=== PATIENT | female | born 1930 | race Caucasian/White ===

== ENCOUNTER 2017-02-19 12:31 | Inpatient (IN) | payer OTHER, BC ==
--- NOTE | 2017-02-19 12:50 | PDOC ---
History of Present Illness - General Chief Complaint: Injury Stated Complaint: FALL Time Seen by Provider: 02/19/17 12:49 - History of Present Illness Initial Comments: 02/19/17 12:49 The patient is a year old female, with a significant past medical history of, who presents to the emergency department with The patient denies chest pain, shortness of breath, headache and dizziness. Denies fever, chills, nausea, vomit, diarrhea and constipation. Denies dysuria, frequency, urgency and hematuria. Allergies: Past surgical history: Social history: PMD - Past History - Past Medical History Allergies/Adverse Reactions: Allergies Allergy/AdvReac Type Severity Reaction Status Date / Time shellfish derived Allergy Intermediate Hives Verified 10/04/13 21:25 strawberry [[place]] Allergy Mild Hives Verified 10/04/13 21:25 aspirin Allergy Verified 10/04/13 21:25 Home Medications: Ambulatory Orders Simvastatin [Zocor] 80 mg PO HS #0 tablet 06/11/12 Carvedilol [Coreg -] 25 mg PO BID #0 tablet 11/05/12 Clopidogrel Bisulfate [Plavix -] 75 mg PO DAILY #0 tablet 11/05/12 Enalapril Maleate [Vasotec -] 10 mg PO DAILY #0 tablet 11/05/12 Furosemide [Lasix -] 40 mg PO DAILY #0 11/05/12 Pantoprazole Sodium [Protonix -] 40 mg PO DAILY #0 tablet.ec 11/05/12 Potassium Chloride [K-Dur -] 10 meq PO DAILY #0 tablet.er 11/05/12 Digoxin [Lanoxin -] 0.125 mg PO Q36H #20 tablet 10/05/13 Levofloxacin [Levaquin -] 500 mg PO DAILY #10 tablet 10/05/13 Amlodipine Besylate [Norvasc -] 10 mg PO DAILY #30 tablet 07/05/15 Anemia: Yes (IRON deficiency) Asthma: No Cancer: No Cardiac Disorders: Yes (CARDIAC STENTS, [place], Cabg) CVA: No COPD: No CHF: Yes Dementia: No Diabetes: No GI Disorders: Yes (H. PYLORI, GI BLEED) Disorders: No HTN: Yes Hypercholesterolemia: Yes Liver Disease: No Seizures: No Thyroid Disease: No - Surgical History Abdominal Surgery: No Appendectomy: No Cardiac Surgery: Yes (OPEN HEART SURGERY) Cholecystectomy: No Lung Surgery: No Neurologic Surgery: No Orthopedic Surgery: No - Suicide/Smoking/Psychosocial Hx Smoking Status: No Smoking History: Never smoked Have you smoked in the past 12 months: No Number of Cigarettes Smoked Daily: 0 Hx Alcohol Use: No Drug/Substance Use Hx: No Substance Use Type: None Hx Substance Use Treatment: No Review of Systems - Review of Systems Comments:: 02/19/17 12:49 GENERAL/CONSTITUTIONAL: No fever or chills. No weakness. HEAD, EYES, EARS, NOSE AND THROAT: No change in vision. No ear pain or discharge. No sore throat. CARDIOVASCULAR: No chest pain or shortness of breath RESPIRATORY: No cough, wheezing, or hemoptysis. GASTROINTESTINAL: No nausea, vomiting, diarrhea or constipation. GENITOURINARY: No dysuria, frequency, or change in urination. MUSCULOSKELETAL: No joint or muscle swelling or pain. No neck or back pain. SKIN: No rash NEUROLOGIC: No headache, vertigo, loss of consciousness, or change in strength/ sensation. ENDOCRINE: No increased thirst. No abnormal weight change HEMATOLOGIC/LYMPHATIC: No anemia, easy bleeding, or history of blood clots. ALLERGIC/IMMUNOLOGIC: No hives or skin allergy. *Physical Exam - Physical Exam Comments: 02/19/17 12:49 GENERAL: Awake, alert, and fully oriented, in no acute distress HEAD: No signs of trauma, normocephalic, atraumatic EYES: PERRLA, EOMI, sclera anicteric, conjunctiva clear ENT: Auricles normal inspection, hearing grossly normal, nares patent, oropharynx clear without exudates. Moist mucosa NECK: Normal ROM, supple, no lymphadenopathy, JVD, or masses LUNGS: No distress, speaks full sentences, clear to auscultation bilaterally HEART: Regular rate and rhythm, normal S1 and S2, no murmurs, rubs or gallops, peripheral pulses normal and equal bilaterally. ABDOMEN: Soft, nontender, normoactive bowel sounds. No guarding, no rebound. No masses EXTREMITIES: Normal inspection, Normal range of motion, no edema. No clubbing or cyanosis. NEUROLOGICAL: Cranial nerves II through XII grossly intact. Normal speech, normal gait, no focal sensorimotor deficits SKIN: Warm, Dry, normal turgor, no rashes or lesions noted.
[2017-02-19 12:59] VITALS: BMI 15.8
--- NOTE | 2017-02-19 13:02 | PDOC ---
History of Present Illness - General Chief Complaint: Injury Stated Complaint: FALL Time Seen by Provider: 02/19/17 12:49 - History of Present Illness Initial Comments: 02/19/17 15:04 The patient is an 86 year old female with a history of CAD, DC s/p CABG and Stenting, HTN, HLD, Lung cancer who presents for evaluation following a fall The patient is hard of hearing and a poor historian. She is accompanied by her sister who assists in providing the history. They report that the patient lives alone and fell 1 day ago and wasn't found until today. They report that she was lying on the floor for almost 24 hours prompting their presentation to the ED today. They state that she has been falling more frequently over the past 2 months secondary to worsening weakness. They report that she has lost 80 pounds over the past 6 months due to her lung cancer. The patient complains of chest pain on the left side that she states is not new. She denies fevers, chills, abdominal pain or other injuries however she is a poor historian due to her difficulty hearing. Past History - Past Medical History Allergies/Adverse Reactions: Allergies Allergy/AdvReac Type Severity Reaction Status Date / Time shellfish derived Allergy Intermediate Hives Verified 02/19/17 12:59 strawberry [[place]] Allergy Mild Hives Verified 02/19/17 12:59 aspirin Allergy Verified 02/19/17 12:59 Home Medications: Ambulatory Orders Simvastatin [Zocor] 80 mg PO HS #0 tablet 06/11/12 Carvedilol [Coreg -] 25 mg PO BID #0 tablet 11/05/12 Clopidogrel Bisulfate [Plavix -] 75 mg PO DAILY #0 tablet 11/05/12 Enalapril Maleate [Vasotec -] 10 mg PO DAILY #0 tablet 11/05/12 Furosemide [Lasix -] 40 mg PO DAILY #0 11/05/12 Pantoprazole Sodium [Protonix -] 40 mg PO DAILY #0 tablet.ec 11/05/12 Potassium Chloride [K-Dur -] 10 meq PO DAILY #0 tablet.er 11/05/12 Digoxin [Lanoxin -] 0.125 mg PO Q36H #20 tablet 10/05/13 Levofloxacin [Levaquin -] 500 mg PO DAILY #10 tablet 10/05/13 Amlodipine Besylate [Norvasc -] 10 mg PO DAILY #30 tablet 07/05/15 Anemia: Yes (IRON deficiency) Asthma: No Cancer: No Cardiac Disorders: Yes (CARDIAC STENTS, [place], Cabg) CVA: No COPD: No CHF: Yes Dementia: No Diabetes: No GI Disorders: Yes (H. PYLORI, GI BLEED) Disorders: No HTN: Yes Hypercholesterolemia: Yes Liver Disease: No Seizures: No Thyroid Disease: No - Surgical History Abdominal Surgery: No Appendectomy: No Cardiac Surgery: Yes (OPEN HEART SURGERY) Cholecystectomy: No Lung Surgery: No Neurologic Surgery: No Orthopedic Surgery: No - Suicide/Smoking/Psychosocial Hx Smoking Status: No Smoking History: Never smoked Have you smoked in the past 12 months: No Number of Cigarettes Smoked Daily: 0 Hx Alcohol Use: No Drug/Substance Use Hx: No Substance Use Type: None Hx Substance Use Treatment: No Review of Systems - Review of Systems Comments:: 02/19/17 15:16 Constitutional: Fatigue. No fevers, chills, malaise HEENT: No Rhinorrhea, nasal congestion, visual changes Cardiovascular: Chest pain. No syncope, palpitations, lightheadedness Respiratory: No Cough, SOB, Hemoptysis, Gastrointestinal: No Abdominal pain, Nausea, Vomiting, Constipation, Diarrhea, Melena Genitourinary: No Dysuria, Frequency, Urgency, Hesitancy, Hematuria, Flank pain Musculoskeletal: No Myalgia, arthralgia Skin: No rashes, bruising, pallor Neurologic: No Headache, Dizziness, Numbness, Weakness, or Tingling *Physical Exam - Vital Signs Last Vital Signs Temp Pulse Resp BP Pulse Ox 100 H 18 134/59 97 02/19/17 12:39 02/19/17 12:39 02/19/17 12:39 02/19/17 12:39 - Physical Exam Comments: 02/19/17 15:19 General Appearance: Thin. No Apparent Distress HEENT: EOMI, [place]. No Pharyngeal Erythema, Tonsillar Exudate, Tonsillar Erythema Neck: No Cervical Lymphadenopathy Respiratory/Chest: Lungs Clear, Normal Breath Sounds. No Crackles, Rales, Rhonchi, Wheezing Cardiovascular: Regular Rhythm, Regular Rate. Systolic murmur auscultated on exam. No Gallops, Rubs Gastrointestinal/Abdominal: Normal Bowel Sounds, Soft. No Guarding, Rebound, Tenderness Musculoskeletal: No CVA Tenderness Extremity: Normal Capillary Refill Integumentary: Normal Color, Dry, Warm Neurologic: Fully Oriented, Alert, Normal Mood/Affect, Normal Response, ED Treatment Course - LABORATORY CBC & Chemistry Diagram: 02/19/17 14:00 02/19/17 14:00 Medical Decision Making - Medical Decision Making 02/19/17 15:24 The patient is an 86 year old female with a history of CAD, DC s/p CABG and Stenting, HTN, HLD, Lung cancer who presents for evaluation following a fall. Differential includes but is not limited to: Fracture, Intracranial bleed, rhabdomyolysis, ACS, infectious, metabolic derangement. EKG performed is concerning for STEMI and demonstrates st elevations in v1-v3 with depressions in I and II worse from a previous EKG in 2013. We will send a cbc, cmp, inr, troponin and obtain a head and cervical spine ct as well as a chest and pelvis plain films to evaluate further. We discussed with Dr. Dangelo with cardiology who will come evaluate the patient. 02/19/17 15:28 Received a call from radiology regarding the patient's head ct which was concerning for a small postraumatic subarrachnoid hemorrhage. We consulted with Dr. Larkin with neurosurgery who informed us that the they usually do not operate on such bleeds. They have been made aware of the case. Dr Dangelo has evaluated the patient and will perform a stat echo. She states that the patient has an DC until proven otherwise although the patient does not want to be cathed. We will medically manage in the meantime. 02/19/17 16:05 We discussed the case with Dr. Landeros who accepted the patient for admission to floor telemetry. Troponin is 0.04, cbc demonstrates a wbc of 12. CMP is unremarkable. *DC/Admit/Observation/Transfer Diagnosis at time of Disposition: Subarachnoid hemorrhage CAD (coronary artery disease) Qualifiers: Coronary Disease-Associated Artery/Lesion type: unspecified vessel or lesion type [place] vs. transplanted heart: unspecified whether false pass or transplanted heart Associated angina: angina presence unspecified Qualified Code(s): I25.10 - Atherosclerotic heart disease of [place] pass coronary artery without angina pectoris; I25.10 - Atherosclerotic heart disease of false pass coronary artery without angina pectoris; I25.10 - Atherosclerotic heart disease of false pass coronary artery without angina pectoris - Discharge Dispostion Condition at time of disposition: Guarded Admit: Yes
--- NOTE | 2017-02-19 13:39 | PDOC ---
Attending Attestation - Resident Resident Name: Narendra Suggs - ED Attending Attestation I have performed the following: I have examined & evaluated the patient, The case was reviewed & discussed with the resident, I agree w/resident's findings & plan, Exceptions are as noted - HPI HPI: 02/19/17 13:36 86yo F hx CAD, [place], HTN, CHF, lung ca p/w fall. Lives by herself. Fell yesterday and was not found until today. Family states she has been falling a lot over the last few months due to weakness from lung ca. Pt reporting pain in her L chest that she relates to her lung cancer pain. Pt denies head strike. Otherwise denies fevers, chills, sob, abd pain, n/v/d, LE edema, rashes - Physicial Exam PE: 02/19/17 16:09 GENERAL: Awake, alert, in no acute distress. Pt is cachectic, chronically ill appearing HEAD: No signs of trauma EYES: PERRLA, EOMI, sclera anicteric, conjunctiva clear ENT: Auricles normal inspection, hearing grossly normal, nares patent, oropharynx clear without exudates. Moist mucosa NECK: Normal ROM, supple, no lymphadenopathy, JVD, or masses LUNGS: Decreased BS at the L base. No wheezes, and no crackles HEART: Regular rate and rhythm, normal S1 and S2, no murmurs, rubs or gallops ABDOMEN: Soft, nontender, normoactive bowel sounds. No guarding, no rebound. No masses EXTREMITIES: Normal range of motion, no edema. No clubbing or cyanosis. No cords, erythema, or tenderness NEUROLOGICAL: Normal speech, cranial nerves intact, negative pronator drift, 5/ 5 strength in all 4 extremities, normal sensation to light touch in all 4 extremities, normal cerebellar exam, normal reflexes and tone. Gait deferred. SKIN: Warm, Dry, normal turgor, no rashes or lesions noted. - Medical Decision Making 02/19/17 16:14 86-year-old female with multiple medical problems including active lung cancer not on any treatment presents after she was found down today. Patient had a fall yesterday and was unable to get up on her own. Vitals with mild tachycardia initially to 100 but normalized to 90s on my exam. Patient is chronically ill-appearing with decreased breath sounds to the left lung. EKG is concerning for ST elevations and in the context of chronic left-sided chest pain this is concerning for ACS. We immediately consulted Dr. Freeman from cardiology, while we obtained a CTH to look for possible brain mets or ICH from falls (which would make it difficult to give her ASA or heparin for her ALEJANDRO). While Dr. Freeman was evaluating the patient, the CTH was read with SAH vs possible brain mets. BP 140s systolic. Given the SAH, ASA was withheld. Pt repeatedly stating "I do not want anything done." Upon discussion with the patient and her family, the decision was made that the patient was DNR/DNI. NSg was c/s for the SAH and had no additional recommendations for now. Pt is admitted to Dr. Landeros for further management. Heart Score/ECG Review #1 02/19/17 16:13 Twelve-lead EKG was performed and reviewed by me. Normal sinus rhythm, rate 98 normal axis normal intervals. [address] elevation in lead V3, [address] elevations in V1 and V2 with reciprocal ST depressions and leads 1 and 2. When compared to previous EKG from 06/13/2015 ST elevation in V3 is new and previous T-wave inversions in V4 and V6 have now pseudo-normalized.
[2017-02-19] MEDS ORDERED: SODIUM CHLORIDE 500 ML IV SCH (13:45)
[2017-02-19 14:50] LABS: BASOPHIL 0.1 % (0-2.0); EOSINOPHIL 0.1 % (0-4.5); MCH 24.4 pg (25.7-33.7); MCHC 31.1 g/dl (32.0-36.0); MEAN CELL VOLUME 78.4 fl (80-96); MEAN PLT VOLUME 9.2 fl (7.5-11.1); NEUTROPHILS 85.7 % (42.8-82.8); PLATELET COUNT 334 K/MM3 (134-434); RDW 15.7 % (11.6-15.6); WHITE BLOOD COUNT 12.8 K/mm3 (4.0-10.0)
[2017-02-19] MEDS ORDERED: METOPROLOL TARTRATE 5 MG/5 ML VIAL ONE (14:58)
[2017-02-19] MEDS ORDERED: METOPROLOL TARTRATE 5 MG/5 ML VIAL IVPUSH ONE (14:59)
[2017-02-19] MEDS ORDERED: SODIUM CHLORIDE 1,000 ML IV STA (15:21)
[2017-02-19 15:35] LABS: ALBUMIN 2.8 g/dl (3.4-5.0); ANION GAP 7 (8-16); CO2 30 mmol/L (21-32); GLUCOSE,RANDOM 108 mg/dL (74-106); SGOT/AST 30 U/L (15-37); SGPT/ALT 8 U/L (12-78)
[2017-02-19 15:39] LABS: ALK PHOS 93 U/L (45-117); BILIRUBIN,TOTAL 0.4 mg/dL (0.2-1.0); CPK 308 IU/L (26-192); TROPONIN I 0.04 ng/ml (0.00-0.05)
[2017-02-19 15:53] LABS: INR 1.04 (0.82-1.09); PROTHROMBIN TIME (PATIENT) 11.7 SEC (9.98-11.88)
--- NOTE | 2017-02-19 15:53 | CON.CARD ---
Cardiology Consult (text) - Consultation Consultation Note: 86 yo with pmhx of CAD s/p cabg and pci, HTN, Hyperlipdemia, anemia and lung cancer (has deferred further treatment) presents s/p fall and noted to have ST elevations on EKG with concern for STEMI. Lives by herself. Went to sit down and missed chair. Denies prodrome of dizziness, palps, cp. could not get up and was on floor for 24 hours. Currently with + left sided CP. "terrible" in intensity. States she has chronic left sided cp due to her lung cancer. Unclear if this is a worsening from baseline. Poor historian. Very hard of hearing. Rapid weight loss over the past few months no sob, orthopnea, pnd, le edema. no f/c/s, n/v/d, cough, congestion, rashes pmhx/pshx: per hpi social hx: Never smoked. Not dnr/dni. States she lives by herself. fam hx: no premature cad ros: per hpi Ambulatory Orders Simvastatin [Zocor] 80 mg PO HS #0 tablet 06/11/12 Carvedilol [Coreg -] 25 mg PO BID #0 tablet 11/05/12 Clopidogrel Bisulfate [Plavix -] 75 mg PO DAILY #0 tablet 11/05/12 Enalapril Maleate [Vasotec -] 10 mg PO DAILY #0 tablet 11/05/12 Furosemide [Lasix -] 40 mg PO DAILY #0 11/05/12 Pantoprazole Sodium [Protonix -] 40 mg PO DAILY #0 tablet.ec 11/05/12 Potassium Chloride [K-Dur -] 10 meq PO DAILY #0 tablet.er 11/05/12 Digoxin [Lanoxin -] 0.125 mg PO Q36H #20 tablet 10/05/13 Levofloxacin [Levaquin -] 500 mg PO DAILY #10 tablet 10/05/13 Amlodipine Besylate [Norvasc -] 10 mg PO DAILY #30 tablet 07/05/15 Current Medications Sodium Chloride (Normal Saline -) 1,000 mls @ 1,000 mls/hr IV ASDIR STA Stop: 02/19/17 16:20 Last Admin: 02/19/17 15:42 Dose: 1,000 mls/hr Metoprolol Tartrate (Lopressor -) 25 mg PO TID [facility] Vital Signs - 24 hr 02/19/17 02/19/17 02/19/17 12:39 13:02 14:56 Temperature 97.9 F Pulse Rate 100 H Pulse Rate [ 99 H Apical] Respiratory 18 20 Rate Blood Pressure 134/59 Blood Pressure 146/62 [Arm] O2 Sat by Pulse 97 98 Oximetry (%) 02/19/17 15:14 Temperature Pulse Rate Pulse Rate [ 87 Apical] Respiratory 28 H Rate Blood Pressure Blood Pressure 136/57 [Arm] O2 Sat by Pulse 99 Oximetry (%) Intake & Output 02/17/17 02/18/17 02/19/17 02/20/17 07:59 07:59 07:59 07:59 Weight 81 lb + pain, cachectic jvd flat, neck supple bibasilar rales, ctab tachycardic, regular 2/6 murmur at lsb and apex. + bs soft nt nd ext without e/c/c + dp/pt no carotid bruits alert and oriented no jaundice, diaphoresis CBC, BMP 02/19/17 14:00 02/19/17 14:00 Cardiac enzymes still pending. EKG 1 and 2: SR, worsening ST elevations in anterior leads, with ST depressions laterally. LVH. tele: sr/stach bedside echo: LVH, hyperdynamic LV with small cavity and increased lvot gradients. ? JAQUELIN. + mr. STEMI vs. repolarization changes from lvh. - at bedside during echo as above. Reassuring that overall systolic function is normal. Changes may be 2/2 lvh and repolarization abnormalities at fast heart rate. patient is hyperdynamic with possible lvot obstruction --> Recommend slowing heart rate with IV metoprolol push and the 25 mg metoprolol po tid. IVF to improve cardiac hemodynamics. Would repeat EKG once HR improved. - Follow up cardiac enzymes. Can't r/o STEMI. Discussed case with patient and family. Patient does not want to pursue invasive cardiac management. Also, per report prelim review of head ct --> subarachnoid bleed. Final report pending. Not a candidate for AC/antiplatelet ACS therapy at this time due to intracranial bleed. - Can consider need for statin pending LFT's/CE's. patient at risk for rhabdomyolysis due to prolonged immobilization post fall. HTN/HL: meds as above. > 40 min spent either at bedside, discussing with family, reviewing chart.
[2017-02-19 15:56] LABS: ACTIVATED PTT 23.2 SECONDS (26.9-34.4)
[2017-02-19] MEDS ORDERED: ONDANSETRON 4 MG/2 ML VIAL IVPUSH PRN (16:18)
[2017-02-19] MEDS ORDERED: morphine CARPU-JECT 2 MG/1 ML DISP.SYRIN IVPUSH PRN (16:18)
[2017-02-19] MEDS ORDERED: METOPROLOL TARTRATE 25 MG TABLET (FP) ONE (16:18)
[2017-02-19] MEDS: METOPROLOL TARTRATE 25 MG TABLET (FP) PO SCH ×2 (16:23→21:54)
[2017-02-19] MEDS ORDERED: SODIUM CHLORIDE 1,000 ML IV SCH (16:30)
--- NOTE | 2017-02-19 16:34 | HP ---
Admitting History and Physical - Primary Care Physician PCP: Smith Acosta - Admission Chief Complaint: I fell History of Present Illness: Ms Ponce is a very pleasant 86 year old female who comes in when found down after falling 24 hours ago. She is hard of hearing and cannot give a detailed history. She says that she fell yesterday, she cannot tell me the reason she fell or if she hit her head. She says that she was unable to get up and was found today. She complains of chest pain on her left side, she says she has 3 tumors there and they are always hurting. It is difficult to obtain further history secondary to her hearing and she also appears confused. Her family is at the bedside and says she lives alone, and while has been doing ok, has been steadily declining. They say she has been having more frequent falls recently. They note about a 20lb weight loss in the past 2-3 months. They think she is dehydrated and has not been eating like she should. They also think she has been losing her balance. She has a history of lung cancer and has declined treatment for this in the past. History Source: Patient, Family Member Limitations to Obtaining History: Clinical Condition - Past Medical History Cardiovascular: Yes: CAD, CHF, HTN, Hyperlipdemia, MA, Other (coronary artery stents) Pulmonary: Yes: Other (mass) Gastrointestinal: Yes: Diverticulosis, Gastritis, GI Bleed Heme/Onc: Yes: Anemia, Other (iron deficient) - Past Surgical History Past Surgical History: Yes: Stent (coronary arteries) - Smoking History Smoking history: Never smoked Have you smoked in the past 12 months: No Aproximately how many cigarettes per day: 0 - Alcohol/Substance Use Hx Alcohol Use: No History of Substance Use: reports: None - Social History Usual Living Arrangement: Yes: Alone ADL: Independent Occupation: retired History of Recent Travel: No Home Medications - Allergies Allergies/Adverse Reactions: Allergies Allergy/AdvReac Type Severity Reaction Status Date / Time shellfish derived Allergy Intermediate Hives Verified 02/19/17 12:59 strawberry [Barto] Allergy Mild Hives Verified 02/19/17 12:59 aspirin Allergy Verified 02/19/17 12:59 - Home Medications Home Medications: Ambulatory Orders Simvastatin [Zocor] 80 mg PO HS #0 tablet 06/11/12 Carvedilol [Coreg -] 25 mg PO BID #0 tablet 11/05/12 Clopidogrel Bisulfate [Plavix -] 75 mg PO DAILY #0 tablet 11/05/12 Enalapril Maleate [Vasotec -] 10 mg PO DAILY #0 tablet 11/05/12 Furosemide [Lasix -] 40 mg PO DAILY #0 11/05/12 Pantoprazole Sodium [Protonix -] 40 mg PO DAILY #0 tablet.ec 11/05/12 Potassium Chloride [K-Dur -] 10 meq PO DAILY #0 tablet.er 11/05/12 Digoxin [Lanoxin -] 0.125 mg PO Q36H #20 tablet 10/05/13 Levofloxacin [Levaquin -] 500 mg PO DAILY #10 tablet 10/05/13 Amlodipine Besylate [Norvasc -] 10 mg PO DAILY #30 tablet 07/05/15 Family Disease History - Family Disease History Family Disease History: Heart Disease: Mother (78), Other: Father (old age 99) Review of Systems Unable to obtain ROS, reason: clinical condition Physical Examination Vital Signs: Vital Signs Temperature 36.6 C 02/19/17 13:02 Pulse Rate 94 H 02/19/17 16:16 Respiratory Rate 22 02/19/17 16:16 Blood Pressure 138/78 02/19/17 16:16 O2 Sat by Pulse Oximetry (%) 98 02/19/17 16:16 Constitutional: Yes: No Distress, Calm, Thin Eyes: Yes: Conjunctiva Clear, EOM Intact, PERRL Cardiovascular: Yes: Regular Rate and Rhythm, Other (sternal scar). No: Gallop , Murmur, Rub Respiratory: Yes: Regular, CTA Bilaterally, On Nasal O2. No: Rales, Rhonchi, Wheezes Gastrointestinal: Yes: Normal Bowel Sounds, Soft. No: Distention, Tenderness Extremities: Yes: WNL Edema: No Labs: CBC, BMP 02/19/17 14:00 02/19/17 14:00 Imaging - Results Chest X-ray: Pending Cat Scan: Report Reviewed EKG: Image Reviewed Problem List - Problems (1) STEMI (ST elevation myocardial infarction) Assessment/Plan: -patient with STEMI seen on EKG -case d/w Dr Dangelo -admit to telemetry -has history of repolarization, may be secondary to dehydration and tachycardia instead of true STEMI -nonetheless, medical management -patient is not a candidate for anticoagulation secondary to bleeding so no heparin/aspirin/plavix -control heart rate with metoprolol tid -gentle hydration -trend cardiac enzymes Code(s): I21.3 - ST ELEVATION (STEMI) MYOCARDIAL INFARCTION OF [facility] (2) Subarachnoid bleed Assessment/Plan: -secondary to fall -not a surgical candidate and patient does not want -hold all anticoagulation -neurosurgery aware Code(s): I60.9 - NONTRAUMATIC SUBARACHNOID HEMORRHAGE, UNSPECIFIED (3) HELGA (acute kidney injury) Assessment/Plan: -considering weight and muscle mass, patient with HELGA -hydration with IVF -monitor Code(s): N17.9 - ACUTE KIDNEY FAILURE, UNSPECIFIED (4) Fall Assessment/Plan: -unsure if mechanical or syncope -fall risk precautions -ECHO performed -will hold on carotid ultrasound considering if positive no surgical intervention is warranted or desired per patient and family Code(s): W19.XXXA - UNSPECIFIED FALL, INITIAL ENCOUNTER Qualifiers: Encounter type: initial encounter Qualified Code(s): W19.XXXA - Unspecified fall, initial encounter; W19.XXXA - Unspecified fall, initial encounter (5) Hyperlipidemia Assessment/Plan: -check lipid panel in am -will hold statin secondary to bleeding and theoretical risk of worsening bleeding Code(s): E78.5 - HYPERLIPIDEMIA, UNSPECIFIED (6) Hypertension Assessment/Plan: -now on metoprolol tid -will continue enalapril, but at lower dose, for HTN and CAD -monitor Code(s): I10 - ESSENTIAL (PRIMARY) HYPERTENSION Qualifiers: Hypertension type: essential hypertension Qualified Code(s): I10 - Essential (primary) hypertension; I10 - Essential (primary) hypertension; I10 - Essential (primary) hypertension (7) CHF (congestive heart failure) Assessment/Plan: -not in exacerbation and dehydrated with HELGA -no diuretics -gentle hydration -close monitoring Code(s): I50.9 - HEART FAILURE, UNSPECIFIED Qualifiers: Congestive heart failure type: diastolic Congestive heart failure chronicity: chronic Qualified Code(s): I50.32 - Chronic diastolic ( congestive) heart failure; I50.32 - Chronic diastolic (congestive) heart failure ; I50.32 - Chronic diastolic (congestive) heart failure; I50.32 - Chronic diastolic (congestive) heart failure (8) Mass of lung Assessment/Plan: -pain control -patient does not desire treatment for this Code(s): R91.8 - OTHER NONSPECIFIC ABNORMAL FINDING OF LUNG FIELD Assessment/Plan -discussed code status with family -stated patient would not want aggressive care -DNR/DNI -will not admit to ICU, however will monitor on telemetry and controlling heart rate is non-invasive and can be medically managed -monitor for improvement -however even if improves, patient may benefit from hospice/comfort measures as with overall condition suspect less than 6 months of life -if declines, patient will need placement as is unsafe discharge home alone
[2017-02-19 17:47] LABS: URINE APPEARANCE SLCLOUDY; URINE BILIRUBIN NEGATIVE (NEGATIVE); URINE BLOOD NEGATIVE (NEGATIVE); URINE COLOR YELLOW; URINE GLUCOSE (UA) NEGATIVE (NEGATIVE); URINE KETONE NEGATIVE (NEGATIVE); URINE NITRITE NEGATIVE (NEGATIVE); URINE UROBILINOGEN NEGATIVE mg/dL (0.2-1.0)
[2017-02-19 17:57] LABS: URINE PROTEIN 1+ (NEGATIVE)
[2017-02-19 18:39] LABS: URINE HYALINE CAST 4 /lpf; URINE MUCUS RARE; URINE RBC <1 /hpf (0-3); URINE WBC 3 /hpf (3-5)
[2017-02-19 19:47] LABS: URINE LEUK ESTERASE Negative (NEGATIVE)
[2017-02-19] MEDS: DOCUSATE SODIUM 100 MG CAPSULE (FP) PO SCH (21:54)
[2017-02-20 03:29] LABS: TROPONIN I 0.05 ng/ml (0.00-0.05)
[2017-02-20] MEDS: METOPROLOL TARTRATE 25 MG TABLET (FP) PO SCH ×3 (06:44→22:16)
[2017-02-20 08:00] LABS: BASOPHIL 0.2 % (0-2.0); EOSINOPHIL 0.4 % (0-4.5); MCH 24.9 pg (25.7-33.7); MCHC 32.1 g/dl (32.0-36.0); MEAN CELL VOLUME 77.6 fl (80-96); MEAN PLT VOLUME 9.1 fl (7.5-11.1); PLATELET COUNT 298 K/MM3 (134-434); RDW 15.7 % (11.6-15.6); WHITE BLOOD COUNT 10.5 K/mm3 (4.0-10.0)
[2017-02-20 08:23] LABS: ANION GAP 7 (8-16); CHOLESTEROL 138 mg/dL (50-200); CO2 28 mmol/L (21-32); GLUCOSE,RANDOM 81 mg/dL (74-106); MAGNESIUM 2.2 mg/dL (1.8-2.4)
[2017-02-20 08:31] LABS: CPK 108 IU/L (26-192); CREATININE 0.8 mg/dL (0.55-1.02); PHOSPHOROUS 2.9 mg/dL (2.5-4.9); TROPONIN I 0.04 ng/ml (0.00-0.05)
--- NOTE | 2017-02-20 09:18 | PN ---
Progress Note (short form) - Note Progress Note: Patient seen and examined. Cachectic with weight loss and hypercalcemic. Lung Cancer with mass increased in size and possibly bony metastases noted to ribs and vertebra Spoke to [facility];I recommended patient should be placed on inpatient hospice and rec:[place] transfer. IV Saline to continue and comfort measures. on exam: Vital Signs Temp 98.2 F 02/20/17 14:00 Pulse 84 02/20/17 14:00 Resp 20 02/20/17 14:00 BP 117/49 02/20/17 14:00 Pulse Ox 97 02/20/17 08:56 Intake & Output 02/19/17 02/20/17 02/20/17 23:59 11:59 23:59 Intake Total 332 Balance 332 Weight 81 lb 0.001 oz 79 lb 3.2 oz Intake: IV 332 Normal Saline - 1,000 ml 332 @ 83 mls/hr IV ASDIR NAN Rx#:[id number] Other: Voiding Method Incontinent Diaper # Unmeasured Voids Void 2 Height 5 ft Body Mass Index (BMI) 15.8 Weight Measurement Method Estimated by Staff Standing Scale patient lethargic Cachectic in appearance Decreased breath sounds. Heart 2/6 murmur. Abdomen soft. Extremities no edema. Abnormal Lab Results 02/19/17 02/19/17 02/19/17 13:50 14:00 17:30 WBC MCV MCH RDW Anion Gap 7 L BUN 40 H D Random Glucose 108 H Calcium 12.0 H ALT 8 L D Creatine Kinase 314 H 308 H CK-MB (CK-2) 4.846 H 4.801 H Total Protein 9.0 H Albumin 2.8 L D Urine Protein 1+ H 02/20/17 02/20/17 05:25 05:25 WBC 10.5 H MCV 77.6 L MCH 24.9 L RDW 15.7 H Anion Gap 7 L BUN 41 H Random Glucose Calcium 11.0 H ALT Creatine Kinase CK-MB (CK-2) Total Protein Albumin Urine Protein impression: Lung cancer with bony metastases. Fall with small acute subarachnoid hemorrhage Hypercalcemia improved with IV therapy. Cachexia. 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 Possible acute cardiac ischemia but negative troponins Hypertension. Pain acute and chronic. Plan: Continue IV saline. I spoke to her niece who will speak to the patient's sister regarding plans for care which I think should just be comfort care I recommend inpatient hospice and followup to [facility].
[2017-02-20] MEDS ORDERED: PNEUMOC 13-VAL CONJ-DIP CRM/PF 0.5 ML DISP.SYRIN IM ONE (10:00)
[2017-02-20] MEDS ORDERED: ENALAPRIL MALEATE 10 MG TABLET (FP) PO SCH (10:00)
[2017-02-20] MEDS: SODIUM CHLORIDE 1,000 ML IV SCH (10:53)
[2017-02-20] MEDS: DOCUSATE SODIUM 100 MG CAPSULE (FP) PO SCH ×2 (10:54→22:16)
[2017-02-20] MEDS: POLYETHYLENE GLYCOL 3350 119 GM BTL PO SCH (10:54)
[2017-02-20] MEDS: ENALAPRIL MALEATE 5 MG TABLET (FP) PO SCH (10:55)
--- NOTE | 2017-02-20 11:40 | PN ---
Progress Note (short form) - Note Progress Note: s: no cp sob abd pain headache, dizzy o: Vital Signs Period Temp Pulse Resp BP Sys/Smith Pulse Ox Last 24 Hr 97.9 F-98.4 F 77-100 18-28 134-178/49-108 97-99 nad, cachectic jvd flat, neck supple ctab nl eff rrr 2/6 murmur at lsb and apex. + bs soft nt nd ext without e/c/c alert and oriented no jaundice, diaphoresis Current Medications Generic Name Dose Route Start Last Admin Trade Name Freq PRN Reason Stop Dose Admin Acetaminophen 650 mg 02/19/17 16:18 Tylenol - PO Q4H PRN FEVER OR PAIN Docusate Sodium 100 mg 02/19/17 22:00 02/20/17 10:54 Colace - PO Not Given BID NAN Enalapril Maleate 5 mg 02/20/17 10:00 02/20/17 10:55 Vasotec - PO 5 mg DAILY NAN Administration Sodium Chloride 1,000 mls @ 83 mls/hr 02/20/17 09:15 02/20/17 10:53 Normal Saline - IV 83 mls/hr ASDIR NAN Administration Metoprolol Tartrate 25 mg 02/19/17 16:00 02/20/17 06:44 Lopressor - PO 25 mg TID NAN Administration Morphine Sulfate 1 mg 02/19/17 16:18 Morphine Injection - IVPUSH Q4H PRN PAIN Ondansetron HCl 4 mg 02/19/17 16:18 Zofran Injection IVPUSH Q6H PRN NAUSEA Oxycodone HCl 5 mg 02/19/17 16:18 Roxicodone - PO Q4H PRN PAIN Polyethylene Glycol 17 gm 02/20/17 10:00 02/20/17 10:54 Miralax (For Daily Use) - PO Not Given DAILY NAN CBC, BMP 02/20/17 05:25 02/20/17 05:25 EKG 1 and 2: SR, worsening ST elevations in anterior leads, with ST depressions laterally. LVH. tele: sr/sb, no pathologic bradycardia echo 02/2017: tds; lvh, nl lvef, no wmas, nl rv, mod mr, mild tr, nl rvsp, mild -mod ar/pr a/p: abnl ecg: -initial concern for stemi but echo w/o wma's and trop neg x3 so likely just lvh with repol changes on ecg, no signs of acs htn: -cont current meds hld: -stable subarrachnoid bleed: -pt/family do not want aggressive measures, considering hospice
[2017-02-20] MEDS: oxyCODONE HCL 5 MG TABLET PO PRN ×2 (12:24→19:52)
[2017-02-20] MEDS: ACETAMINOPHEN 325 MG TABLET (FP) PO PRN (12:25)
--- NOTE | 2017-02-20 13:04 | EKG ---
Test Reason : Blood Pressure : / mmHG Vent. Rate : 098 BPM Atrial Rate : 098 BPM P-R Int : 170 ms QRS Dur : 088 ms QT Int : 342 ms P-R-T Axes : 065 -06 149 degrees QTc Int : 436 ms NORMAL SINUS RHYTHM POSSIBLE LEFT ATRIAL ENLARGEMENT LEFT VENTRICULAR HYPERTROPHY WITH REPOLARIZATION ABNORMALITY CANNOT RULE OUT SEPTAL INFARCT (CITED ON OR BEFORE 08-JUN-2012) ABNORMAL ECG WHEN COMPARED WITH ECG OF 13-JUN-2015 10:20, VENT. RATE HAS INCREASED BY [address] ELEVATION NOW PRESENT IN ANTERIOR LEADS T WAVE INVERSION LESS EVIDENT IN ANTEROLATERAL LEADS QT HAS LENGTHENED Confirmed by LYN HOPE MD ([id number]) on 02/20/2017 1:04:14 PM Referred By: Confirmed By:LYN HOPE MD
--- NOTE | 2017-02-20 13:05 | EKG ---
Test Reason : Blood Pressure : / mmHG Vent. Rate : 100 BPM Atrial Rate : 100 BPM P-R Int : 172 ms QRS Dur : 086 ms QT Int : 344 ms P-R-T Axes : 076 007 196 degrees QTc Int : 443 ms NORMAL SINUS RHYTHM LEFT VENTRICULAR HYPERTROPHY WITH REPOLARIZATION ABNORMALITY ANTERIOR INFARCT (CITED ON OR BEFORE 08-JUN-2012) ABNORMAL ECG WHEN COMPARED WITH ECG OF 19-FEB-2017 13:43, T WAVE INVERSION NOW EVIDENT IN ANTERIOR LEADS Confirmed by LYN HOPE MD ([id number]) on 02/20/2017 1:04:50 PM Referred By: Confirmed By:LYN HOPE MD
[2017-02-20] MEDS ORDERED: morphine CARPU-JECT 2 MG/1 ML DISP.SYRIN IVPUSH PRN (17:23)
[2017-02-21] MEDS: oxyCODONE HCL 5 MG TABLET PO PRN ×3 (01:55→21:22)
[2017-02-21] MEDS: METOPROLOL TARTRATE 25 MG TABLET (FP) PO SCH ×3 (06:37→21:19)
[2017-02-21] MEDS: POLYETHYLENE GLYCOL 3350 119 GM BTL PO SCH (09:37)
[2017-02-21] MEDS: ENALAPRIL MALEATE 5 MG TABLET (FP) PO SCH (09:37)
[2017-02-21] MEDS: DOCUSATE SODIUM 100 MG CAPSULE (FP) PO SCH ×2 (09:37→21:19)
--- NOTE | 2017-02-21 09:48 | PN ---
Progress Note (short form) - Note Progress Note: Patient with Lung Ca with local metatases to first rib on left side and probable vertebral metastases fell at home due to general weakness and was on the floor for day and a half. Has not wanted any Rx for her cancer and hs been followed by Dr. Landers. She also sustained a small subarachnoid hemorrhag due to the fall but neurosurgery has felt no Rx needed. She has a ct at home that her sister's daughter is taking care of.. She is more alert today and tolerating her diet and fluid. On Exam: Vital Signs Temp 97.5 F L 02/21/17 06:00 Pulse 72 02/21/17 06:00 Resp 18 02/21/17 06:00 BP 150/60 02/21/17 06:00 Pulse Ox 95 02/20/17 21:00 Intake & Output 02/20/17 02/20/17 02/21/17 11:59 23:59 11:59 Intake Total 784 784 Balance 784 784 Weight 79 lb 3.2 oz 79 lb 12.8 oz Intake: IV 664 664 Normal Saline - 1,000 ml 664 664 @ 83 mls/hr IV ASDIR NAN Rx#:[id number] Oral 120 120 Other: Voiding Method Diaper Incontinent # Unmeasured Voids Void 2 2 Weight Measurement Method Standing Scale Standing Scale Alert Severely hearing impaired Chest: Decreased breath sounds on both sides Abd soft Some tenderness to touch left anterior ribs 1=3 and posterior neck No pedal edema IMP: Fall at home Lung Ca with local metastases to rib and possible vertebrae Hypercalcemia stable on IV Fluids Cachexia Acute small subarachnoid hemorrhage ASHD with stents Acute pain Plan: Patient would benefit from plcement at [facility] or [facility]
--- NOTE | 2017-02-21 09:52 | PN ---
Progress Note (short form) - Note Progress Note: s: no cp sob palps dizzy; has pain in back of neck o: Vital Signs Period Temp Pulse Resp BP Sys/Smith Pulse Ox Last 24 Hr 97.5 F-98.2 F 72-87 18-20 117-154/48-71 95 nad, cachectic jvd flat, neck supple ctab nl eff rrr 2/6 murmur at lsb and apex. + bs soft nt nd ext without e/c/c alert and oriented no jaundice, diaphoresis Current Medications Generic Name Dose Route Start Last Admin Trade Name Freq PRN Reason Stop Dose Admin Acetaminophen 650 mg 02/19/17 16:18 02/20/17 12:25 Tylenol - PO 650 mg Q4H PRN Administration FEVER OR PAIN Docusate Sodium 100 mg 02/19/17 22:00 02/21/17 09:37 Colace - PO 100 mg BID NAN Administration Enalapril Maleate 5 mg 02/20/17 10:00 02/21/17 09:37 Vasotec - PO 5 mg DAILY NAN Administration Sodium Chloride 1,000 mls @ 83 mls/hr 02/20/17 09:15 02/20/17 10:53 Normal Saline - IV 83 mls/hr ASDIR NAN Administration Metoprolol Tartrate 25 mg 02/19/17 16:00 02/21/17 06:37 Lopressor - PO 25 mg TID NAN Administration Morphine Sulfate 2 mg 02/20/17 17:23 Morphine Injection - IVPUSH Q4H PRN PAIN Ondansetron HCl 4 mg 02/19/17 16:18 Zofran Injection IVPUSH Q6H PRN NAUSEA Oxycodone HCl 5 mg 02/19/17 16:18 02/21/17 01:55 Roxicodone - PO 5 mg Q4H PRN Administration PAIN Polyethylene Glycol 17 gm 02/20/17 10:00 02/21/17 09:37 Miralax (For Daily Use) - PO 17 grams DAILY NAN Administration CBC, BMP 02/20/17 05:25 02/20/17 05:25 EKG 1 and 2: SR, worsening ST elevations in anterior leads, with ST depressions laterally. LVH. tele: sr, sb during sleep, no pathologic bradycardia echo 02/2017: tds; lvh, nl lvef, no wmas, nl rv, mod mr, mild tr, nl rvsp, mild -mod ar/pr a/p: abnl ecg: -initial concern for stemi but echo w/o wma's and trop neg x3 so likely just lvh with repol changes on ecg, no signs of acs htn: -cont current meds hld: -stable subarrachnoid bleed: -no interventions as per neurosurgery can dc tele
[2017-02-21] MEDS: ACETAMINOPHEN 325 MG TABLET (FP) PO PRN (12:44)
[2017-02-22] MEDS: METOPROLOL TARTRATE 25 MG TABLET (FP) PO SCH ×3 (05:49→21:34)
[2017-02-22] MEDS: oxyCODONE HCL 5 MG TABLET PO PRN (05:51)
[2017-02-22] MEDS: SODIUM CHLORIDE 1,000 ML IV SCH ×2 (09:20→21:33)
--- NOTE | 2017-02-22 11:07 | PN ---
Progress Note, Physician History of Present Illness: No events No tele NO chest pain Some left axillae pain - Current Medication List Current Medications: Active Medications Acetaminophen (Tylenol -) 650 mg PO Q4H PRN PRN Reason: FEVER OR PAIN Last Admin: 02/21/17 12:44 Dose: 650 mg Docusate Sodium (Colace -) 100 mg PO BID [facility] Last Admin: 02/21/17 21:19 Dose: 100 mg Enalapril Maleate (Vasotec -) 5 mg PO DAILY [facility] Last Admin: 02/21/17 09:37 Dose: 5 mg Sodium Chloride (Normal Saline -) 1,000 mls @ 83 mls/hr IV ASDIR [facility] Last Admin: 02/20/17 10:53 Dose: 83 mls/hr Metoprolol Tartrate (Lopressor -) 25 mg PO TID [facility] Last Admin: 02/22/17 05:49 Dose: 25 mg Morphine Sulfate (Morphine Injection -) 2 mg IVPUSH Q4H PRN PRN Reason: PAIN Ondansetron HCl (Zofran Injection) 4 mg IVPUSH Q6H PRN PRN Reason: NAUSEA Oxycodone HCl (Roxicodone -) 5 mg PO Q4H PRN PRN Reason: PAIN Last Admin: 02/22/17 05:51 Dose: 5 mg Polyethylene Glycol (Miralax (For Daily Use) -) 17 gm PO DAILY [facility] Last Admin: 02/21/17 09:37 Dose: 17 grams - Objective Vital Signs: Vital Signs Temperature 98 F 02/22/17 08:02 Pulse Rate 74 02/22/17 08:02 Respiratory Rate 20 02/22/17 08:02 Blood Pressure 142/59 02/22/17 08:02 O2 Sat by Pulse Oximetry (%) 95 02/22/17 08:00 Constitutional: Yes: Calm, Cachectic Eyes: Yes: WNL HENT: Yes: WNL Neck: Yes: WNL Cardiovascular: Yes: Regular Rate and Rhythm, Murmur Respiratory: Yes: CTA Bilaterally Musculoskeletal: Yes: WNL Extremities: Yes: WNL Edema: No Labs: CBC, BMP 02/20/17 05:25 02/20/17 05:25 INR, PTT INR 1.04 (0.82-1.09) 02/19/17 13:50 Assessment/Plan echo 02/2017: tds; lvh, nl lvef, no wmas, nl rv, mod mr, mild tr, nl rvsp, mild -mod ar/pr a/p: abnl ecg: -initial concern for stemi but echo w/o wma's and trop neg x3 so likely just lvh with repol changes on ecg, no signs of acs htn: -cont current meds
[2017-02-22] MEDS: DOCUSATE SODIUM 100 MG CAPSULE (FP) PO SCH ×2 (11:40→21:34)
[2017-02-22] MEDS: POLYETHYLENE GLYCOL 3350 119 GM BTL PO SCH (11:40)
[2017-02-22] MEDS: ENALAPRIL MALEATE 5 MG TABLET (FP) PO SCH (11:40)
--- NOTE | 2017-02-22 14:21 | PN ---
Progress Note, Physician Chief Complaint: No new complaint denies any SOB or chest pian History of Present Illness: 86 yrs iold F admitted after susatining a fall extensive history, DNR/DNI, CA Lung with Mets refused treatment, HTN< LVH, SAH, initial impression NSTEMI but tropnoin I normal. - Current Medication List Current Medications: Active Medications Acetaminophen (Tylenol -) 650 mg PO Q4H PRN PRN Reason: FEVER OR PAIN Last Admin: 02/21/17 12:44 Dose: 650 mg Docusate Sodium (Colace -) 100 mg PO BID [facility] Last Admin: 02/22/17 11:40 Dose: 100 mg Enalapril Maleate (Vasotec -) 5 mg PO DAILY [facility] Last Admin: 02/22/17 11:40 Dose: 5 mg Sodium Chloride (Normal Saline -) 1,000 mls @ 83 mls/hr IV ASDIR [facility] Last Admin: 02/22/17 09:20 Dose: 83 mls/hr Metoprolol Tartrate (Lopressor -) 25 mg PO TID [facility] Last Admin: 02/22/17 14:08 Dose: 25 mg Morphine Sulfate (Morphine Injection -) 2 mg IVPUSH Q4H PRN PRN Reason: PAIN Ondansetron HCl (Zofran Injection) 4 mg IVPUSH Q6H PRN PRN Reason: NAUSEA Oxycodone HCl (Roxicodone -) 5 mg PO Q4H PRN PRN Reason: PAIN Last Admin: 02/22/17 05:51 Dose: 5 mg Polyethylene Glycol (Miralax (For Daily Use) -) 17 gm PO DAILY [facility] Last Admin: 02/22/17 11:40 Dose: 17 grams - Objective Vital Signs: Vital Signs Temperature 98 F 02/22/17 08:02 Pulse Rate 74 02/22/17 08:02 Respiratory Rate 20 02/22/17 08:02 Blood Pressure 142/59 02/22/17 08:02 O2 Sat by Pulse Oximetry (%) 95 02/22/17 08:00 Constitutional: Yes: Cachectic HENT: Yes: Atraumatic, Normocephalic Neck: Yes: Supple, Trachea Midline Cardiovascular: Yes: Regular Rate and Rhythm, S1, S2. No: JVD, Murmur, Rub Respiratory: Yes: Regular, CTA Bilaterally Gastrointestinal: Yes: Normal Bowel Sounds, Soft Musculoskeletal: Yes: Back Pain Extremities: Yes: WNL. No: Calf Tenderness, Erythema Edema: LLE: Trace, RLE: Trace Neurological: Yes: WNL, Alert, Oriented ...Motor Strength: WNL, LUE, LLE, RUE Psychiatric: Yes: WNL, Alert, Oriented Labs: CBC, BMP 02/20/17 05:25 02/20/17 05:25 INR, PTT INR 1.04 (0.82-1.09) 02/19/17 13:50 Problem List - Problems (1) Fall Assessment/Plan: Due to gait instability will F./U PT recommendations. Code(s): W19.XXXA - UNSPECIFIED FALL, INITIAL ENCOUNTER Qualifiers: Encounter type: initial encounter Qualified Code(s): W19.XXXA - Unspecified fall, initial encounter; W19.XXXA - Unspecified fall, initial encounter (2) CAD (coronary artery disease) Assessment/Plan: Stable no troponin elevation all home meds Code(s): I25.10 - ATHSCL HEART DISEASE OF [place] CORONARY ARTERY W/O ANG PCTRS Qualifiers: Coronary Disease-Associated Artery/Lesion type: unspecified vessel or lesion type [place] vs. transplanted heart: unspecified whether [place] or transplanted heart Associated angina: angina presence unspecified Qualified Code(s): I25.10 - Atherosclerotic heart disease of [place] coronary artery without angina pectoris; I25.10 - Atherosclerotic heart disease of [place] coronary artery without angina pectoris; I25.10 - Atherosclerotic heart disease of [place] coronary artery without angina pectoris (3) Subarachnoid bleed Assessment/Plan: Post6 Fall no change in serial Ct haed Code(s): I60.9 - NONTRAUMATIC SUBARACHNOID HEMORRHAGE, UNSPECIFIED (4) Mass of lung Assessment/Plan: Ca Lung with meds not on any treatment, awaiting hospice placement at [facility]. Code(s): R91.8 - OTHER NONSPECIFIC ABNORMAL FINDING OF LUNG FIELD (5) Hypertension Assessment/Plan: Well controlled cont all home meds Code(s): I10 - ESSENTIAL (PRIMARY) HYPERTENSION Qualifiers: Hypertension type: essential hypertension Qualified Code(s): I10 - Essential (primary) hypertension; I10 - Essential (primary) hypertension; I10 - Essential (primary) hypertension
[2017-02-23] MEDS: oxyCODONE HCL 5 MG TABLET PO PRN (03:26)
[2017-02-23] MEDS: METOPROLOL TARTRATE 25 MG TABLET (FP) PO SCH ×3 (06:00→21:18)
[2017-02-23 06:48] LABS: BASOPHIL 0.7 % (0-2.0); EOSINOPHIL 4.8 % (0-4.5); MCH 24.9 pg (25.7-33.7); MCHC 32.6 g/dl (32.0-36.0); MEAN CELL VOLUME 76.4 fl (80-96); MEAN PLT VOLUME 8.7 fl (7.5-11.1); NEUTROPHILS 69.2 % (42.8-82.8); PLATELET COUNT 191 K/MM3 (134-434); RDW 15.7 % (11.6-15.6); WHITE BLOOD COUNT 7.3 K/mm3 (4.0-10.0)
[2017-02-23 07:51] LABS: ANION GAP 7 (8-16); CO2 27 mmol/L (21-32); CREATININE 0.5 mg/dL (0.55-1.02); GLUCOSE,RANDOM 90 mg/dL (74-106)
[2017-02-23] MEDS: SODIUM CHLORIDE 1,000 ML IV SCH (10:15)
[2017-02-23] MEDS: ENALAPRIL MALEATE 5 MG TABLET (FP) PO SCH ×2 (10:15→21:19)
[2017-02-23] MEDS: DOCUSATE SODIUM 100 MG CAPSULE (FP) PO SCH ×2 (10:15→21:18)
[2017-02-23] MEDS: POLYETHYLENE GLYCOL 3350 119 GM BTL PO SCH (10:16)
--- NOTE | 2017-02-23 11:12 | PN ---
Progress Note, Physician History of Present Illness: No events overnight Complains of neck and back pain this AM BP elevated this AM prior to Meds given - Current Medication List Current Medications: Active Medications Acetaminophen (Tylenol -) 650 mg PO Q4H PRN PRN Reason: FEVER OR PAIN Last Admin: 02/21/17 12:44 Dose: 650 mg Docusate Sodium (Colace -) 100 mg PO BID [facility] Last Admin: 02/23/17 10:15 Dose: 100 mg Enalapril Maleate (Vasotec -) 5 mg PO DAILY [facility] Last Admin: 02/23/17 10:15 Dose: 5 mg Sodium Chloride (Normal Saline -) 1,000 mls @ 83 mls/hr IV ASDIR [facility] Last Admin: 02/23/17 10:15 Dose: Not Given Metoprolol Tartrate (Lopressor -) 25 mg PO TID [facility] Last Admin: 02/23/17 06:00 Dose: 25 mg Morphine Sulfate (Morphine Injection -) 2 mg IVPUSH Q4H PRN PRN Reason: PAIN Ondansetron HCl (Zofran Injection) 4 mg IVPUSH Q6H PRN PRN Reason: NAUSEA Oxycodone HCl (Roxicodone -) 5 mg PO Q4H PRN PRN Reason: PAIN Last Admin: 02/23/17 03:26 Dose: 5 mg Polyethylene Glycol (Miralax (For Daily Use) -) 17 gm PO DAILY [facility] Last Admin: 02/23/17 10:16 Dose: 17 grams - Objective Vital Signs: Vital Signs Temperature 98 F 02/23/17 08:20 Pulse Rate 76 02/23/17 08:20 Respiratory Rate 16 02/23/17 08:20 Blood Pressure 164/64 02/23/17 08:20 O2 Sat by Pulse Oximetry (%) 93 L 02/22/17 21:00 Constitutional: Yes: No Distress, Calm, Cachectic Eyes: Yes: WNL HENT: Yes: WNL Neck: Yes: WNL Cardiovascular: Yes: Regular Rate and Rhythm Respiratory: Yes: WNL, CTA Bilaterally Gastrointestinal: Yes: Normal Bowel Sounds Musculoskeletal: Yes: WNL Extremities: Yes: WNL Edema: No Labs: CBC, BMP 02/23/17 05:35 02/23/17 05:35 INR, PTT INR 1.04 (0.82-1.09) 02/19/17 13:50 Assessment/Plan 86 yo with abnl ecg: -initial concern for stemi but echo w/o wma's and trop neg x3 so likely just lvh with repol changes on ecg, no signs of acs htn: -Elevated Will increase vasotec to 5mg BID hld: -stable subarrachnoid bleed: -no interventions as per neurosurgery Off tele
--- NOTE | 2017-02-23 23:13 | PN ---
Progress Note, Physician Chief Complaint: No new complaint denies any SOB or chest pian History of Present Illness: 86 yrs iold F admitted after susatining a fall extensive history, DNR/DNI, CA Lung with Mets refused treatment, HTN< LVH, SAH, initial impression NSTEMI but tropnoin I normal. - Current Medication List Current Medications: Active Medications Acetaminophen (Tylenol -) 650 mg PO Q4H PRN PRN Reason: FEVER OR PAIN Last Admin: 02/21/17 12:44 Dose: 650 mg Docusate Sodium (Colace -) 100 mg PO BID [facility] Last Admin: 02/23/17 21:18 Dose: 100 mg Enalapril Maleate (Vasotec -) 5 mg PO BID [facility] Last Admin: 02/23/17 21:19 Dose: 5 mg Metoprolol Tartrate (Lopressor -) 25 mg PO TID [facility] Last Admin: 02/23/17 21:18 Dose: 25 mg Ondansetron HCl (Zofran Injection) 4 mg IVPUSH Q6H PRN PRN Reason: NAUSEA Oxycodone HCl (Roxicodone -) 5 mg PO Q4H PRN PRN Reason: PAIN Last Admin: 02/23/17 03:26 Dose: 5 mg Polyethylene Glycol (Miralax (For Daily Use) -) 17 gm PO DAILY [facility] Last Admin: 02/23/17 10:16 Dose: 17 grams - Objective Vital Signs: Vital Signs Temperature 98.7 F 02/23/17 21:14 Pulse Rate 95 H 02/23/17 21:14 Respiratory Rate 20 02/23/17 21:14 Blood Pressure 154/57 02/23/17 21:14 O2 Sat by Pulse Oximetry (%) 95 02/23/17 20:23 Elderly Cachectic sick yehuda Shi HENT: Yes: MM dry, anemia + Neck: Yes: Supple, Trachea Midline Cardiovascular: Yes: Regular Rate and Rhythm, S1, S2. No: JVD, Murmur, Rub Respiratory: Yes: Regular, Bilaterally Crepts and decrese AE Gastrointestinal: Yes: Normal Bowel Sounds, Soft Musculoskeletal: Yes: Back Pain Extremities: Yes: WNL. No: Calf Tenderness, Erythema Edema: LLE: Trace, RLE: Trace Neurological: Yes: WNL, Alert, Oriented Motor Strength: WNL, LUE, LLE, RUE Psychiatric: Yes: WNL, Alert, Oriented Labs: CBC, BMP 02/23/17 05:35 02/23/17 05:35 INR, PTT INR 1.04 (0.82-1.09) 02/19/17 13:50 Problem List - Problems (1) Fall Assessment/Plan: Due to gait instability will F./U PT recommendations. Code(s): W19.XXXA - UNSPECIFIED FALL, INITIAL ENCOUNTER Qualifiers: Encounter type: initial encounter Qualified Code(s): W19.XXXA - Unspecified fall, initial encounter; W19.XXXA - Unspecified fall, initial encounter (2) CAD (coronary artery disease) Assessment/Plan: Stable no troponin elevation all home meds Code(s): I25.10 - ATHSCL HEART DISEASE OF [place] CORONARY ARTERY W/O ANG PCTRS Qualifiers: Coronary Disease-Associated Artery/Lesion type: unspecified vessel or lesion type [place] vs. transplanted heart: unspecified whether [place] or transplanted heart Associated angina: angina presence unspecified Qualified Code(s): I25.10 - Atherosclerotic heart disease of [place] coronary artery without angina pectoris; I25.10 - Atherosclerotic heart disease of [place] coronary artery without angina pectoris; I25.10 - Atherosclerotic heart disease of [place] coronary artery without angina pectoris (3) Subarachnoid bleed Assessment/Plan: Post6 Fall no change in serial Ct haed Code(s): I60.9 - NONTRAUMATIC SUBARACHNOID HEMORRHAGE, UNSPECIFIED (4) Mass of lung Assessment/Plan: Ca Lung with meds not on any treatment, awaiting hospice placement at [facility]. Code(s): R91.8 - OTHER NONSPECIFIC ABNORMAL FINDING OF LUNG FIELD (5) Hypertension Assessment/Plan: Well controlled cont all home meds Code(s): I10 - ESSENTIAL (PRIMARY) HYPERTENSION Qualifiers: Hypertension type: essential hypertension Qualified Code(s): I10 - Essential (primary) hypertension; I10 - Essential (primary) hypertension; I10 - Essential (primary) hypertension
[2017-02-24] MEDS: METOPROLOL TARTRATE 25 MG TABLET (FP) PO SCH (05:28)
[2017-02-24 06:56] LABS: BASOPHIL 0.7 % (0-2.0); MCH 24.5 pg (25.7-33.7); MEAN CELL VOLUME 76.4 fl (80-96); MEAN PLT VOLUME 8.9 fl (7.5-11.1); NEUTROPHILS 65.2 % (42.8-82.8); PLATELET COUNT 197 K/MM3 (134-434); RDW 15.7 % (11.6-15.6); WHITE BLOOD COUNT 8.1 K/mm3 (4.0-10.0)
[2017-02-24 07:24] LABS: ANION GAP 10 (8-16); CO2 27 mmol/L (21-32); CREATININE 0.4 mg/dL (0.55-1.02); GLUCOSE,RANDOM 79 mg/dL (74-106)
--- NOTE | 2017-02-24 09:37 | PN ---
Progress Note, Physician Chief Complaint: abnl ekg History of Present Illness: denies cp, sob, palpit, syncope - Current Medication List Current Medications: Active Medications Acetaminophen (Tylenol -) 650 mg PO Q4H PRN PRN Reason: FEVER OR PAIN Last Admin: 02/21/17 12:44 Dose: 650 mg Docusate Sodium (Colace -) 100 mg PO BID [facility] Last Admin: 02/23/17 21:18 Dose: 100 mg Enalapril Maleate (Vasotec -) 5 mg PO BID [facility] Last Admin: 02/23/17 21:19 Dose: 5 mg Metoprolol Tartrate (Lopressor -) 25 mg PO TID [facility] Last Admin: 02/24/17 05:28 Dose: 25 mg Ondansetron HCl (Zofran Injection) 4 mg IVPUSH Q6H PRN PRN Reason: NAUSEA Oxycodone HCl (Roxicodone -) 5 mg PO Q4H PRN PRN Reason: PAIN Last Admin: 02/23/17 03:26 Dose: 5 mg Polyethylene Glycol (Miralax (For Daily Use) -) 17 gm PO DAILY [facility] Last Admin: 02/23/17 10:16 Dose: 17 grams - Objective Vital Signs: Vital Signs Temperature 98.9 F 02/24/17 05:20 Pulse Rate 91 H 02/24/17 05:20 Respiratory Rate 18 02/24/17 05:20 Blood Pressure 156/68 02/24/17 05:20 O2 Sat by Pulse Oximetry (%) 95 02/23/17 20:23 Constitutional: Yes: No Distress, Calm, Thin Cardiovascular: Yes: Regular Rate and Rhythm, S1, S2. No: Gallop, Murmur Respiratory: Yes: Regular, CTA Bilaterally. No: Accessory Muscle Use, Rales, Wheezes Extremities: No: Cold Edema: No Neurological: Yes: Alert. No: Seizure Psychiatric: No: Agitated Labs: CBC, BMP 02/24/17 06:25 02/24/17 06:25 INR, PTT INR 1.04 (0.82-1.09) 02/19/17 13:50 - ....Imaging EKG: Other Assessment/Plan EKG 1 and 2: SR, worsening ST elevations in anterior leads, with ST depressions laterally. LVH. echo 02/2017: tds; lvh, nl lvef, no wmas, nl rv, mod mr, mild tr, nl rvsp, mild -mod ar/pr a/p: abnl ecg: -initial concern for stemi but echo w/o wma's and trop neg x3 so likely just lvh with repol changes on ecg, no signs of acs; -remains asymptomatic, clinically stable htn: -consistently moderately > mildly elevated sbp here -enalapril incr'd to 5 bid (02/23) -observe bp trend, consider incr CHERYL further -cont metopr hld: -stable subarrachnoid bleed: -no interventions as per neurosurgery off telemetry ok for d/c from [facility]
--- NOTE | 2017-02-24 09:43 | DS ---
Physical Examination Vital Signs: Vital Signs Temperature 98.9 F 02/24/17 05:20 Pulse Rate 91 H 02/24/17 05:20 Respiratory Rate 18 02/24/17 05:20 Blood Pressure 156/68 02/24/17 05:20 O2 Sat by Pulse Oximetry (%) 95 02/23/17 20:23 Constitutional: Yes: Calm, Mild Distress Cardiovascular: Yes: Regular Rate and Rhythm, Murmur Respiratory: Yes: Diminished, Rhonchi (few left base) Gastrointestinal: Yes: Soft Renal/: No: [place]leon Present Extremities: Yes: Cool, Other (Left axillary lympadenopathy) Edema: No Neurological: Yes: Alert, Other (nearlt deaf; write notes to communicate) Labs: CBC, BMP 02/24/17 06:25 02/24/17 06:25 Discharge Summary Reason For Visit: ATHEROSCLEROSIS OF CORONARY ARTERY Current Active Problems 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 EKG Changes and small subarachnoid bleed(no intervention). LungCa( Bx. proven) worse and vertebral and rib metastases with left axillary nodes. Other Procedures: PO and IV pain Hospital Course: More comfortable on current pain meds. Nearly deaf Condition: Stable - Instructions Diet, Activity, Other Instructions: Diet as tolerated. Patient very hard of hearing. Referrals: Smith Acosta MD [Staff Physician] - Disposition: TRANSFER ACUTE CARE/OTHER HOSP - Home Medications Comprehensive Discharge Medication List: Ambulatory Orders Acetaminophen [Tylenol .Regular Strength -] 650 mg PO Q4H PRN #0 tablet Docusate Sodium [Colace -] 100 mg PO BID #30 cap 02/21/17 Metoprolol Tartrate [Lopressor -] 25 mg PO TID tablet 02/21/17 Morphine Injection - [Morphine Injection 2 mg/1 mL -] 2 mg IVPUSH Q4H PRN #0 ml MDD 6 02/21/17 Ondansetron Injection [Zofran Injection] 4 mg IVPUSH Q6H PRN #0 vial 02/21/17 Oxycodone HCl [Roxicodone -] 5 mg PO Q4H PRN #30 tablet MDD 6 02/21/17 Polyethylene Glycol 3350 [Miralax 119 gm Btl -] 17 gm PO DAILY ml 02/21/17 Sodium Chloride [Normal Saline -] 1,000 ml IV ASDIR ml 02/21/17 Enalapril Maleate [Vasotec -] 5 mg PO BID tablet 02/24/17
[2017-02-24] MEDS: ENALAPRIL MALEATE 5 MG TABLET (FP) PO SCH (10:25)
[2017-02-24] MEDS: DOCUSATE SODIUM 100 MG CAPSULE (FP) PO SCH (10:25)
[2017-02-24] MEDS: POLYETHYLENE GLYCOL 3350 119 GM BTL PO SCH (10:25)
[2017-02-24 11:50] VITALS: BP 154/62; PULSE 83; TEMP 97.9
== END 2017-02-24 11:54 | disposition hospice, inpatient (51) | DRG 64 ==
LOC: JER 12:31 → JERBED 16:07 → J4W 21:25
PROVIDERS: ADMIT Internal Medicine; ATTEND Internal Medicine
DX: I60.9 Nontraumatic subarachnoid hemorrhage, unspecified (principal); E43 Unspecified severe protein-calorie malnutrition; N17.9 Acute kidney failure, unspecified; I50.32 Chronic diastolic (congestive) heart failure; C34.90 Malignant neoplasm of unspecified part of unspecified bronchus or lung; C79.51 Secondary malignant neoplasm of bone; R64 Cachexia; Z68.1 Body mass index [BMI] 19.9 or less, adult; E78.5 Hyperlipidemia, unspecified; I10 Essential (primary) hypertension; R91.8 Other nonspecific abnormal finding of lung field; I11.0 Hypertensive heart disease with heart failure; I25.10 Atherosclerotic heart disease of native coronary artery without angina pectoris; Z98.61 Coronary angioplasty status; Z95.1 Presence of aortocoronary bypass graft; E83.52 Hypercalcemia
CPT/HCPCS: 36415; 70450-TC; 71010-TC; 72125-TC; 72170-TC; 80048; 80053; 80061; 81003; 81015; 82310; 82550; 82553; 83721; 83735; 84100; 84484; 85025; 85610; 85730; 87086; 93005; 93010; 93306-TC; 99284-25